=== PATIENT | male | born 1960 | race Caucasian/White ===

== ENCOUNTER 2017-03-10 14:07 | Emergency (ER) | payer OTHER ==
[~2017-03-10] VITALS: Ht 177.8 cm; Wt 72.0 kg
[~2017-03-10 14:07] MED LIST: ATARAX,VISTARIL25 MG PO; AUGMENTIN875 MG PO; AZELASTINE137 MCG/0. BOTH NARES; DIGOX250 MCG PO; DIGOXIN250 MCG PO; LEVOFLOXACIN750 MG PO; LOPRESSOR50 MG PO; LORATADINE10 M2 PO; METOPROLOL TART50 MG PO; NASONEX17 GM BOTH NARES; OMEPRAZOLE20 MG PO; OXYCODONE HCL10 MG PO; OXYCONTIN10 MG PO; OXYCONTIN15 MG PO; PATADAY2.5 ML BOTH EYES; STOOL SOFTENER100 MG PO; TIZANIDINE HCL4 MG PO; XARELTO20 MG PO
[2017-03-10 14:17] VITALS: BP 121/73
== END 2017-03-10 16:03 | disposition left against medical advice (07) ==
LOC: EME 14:07
DX: S61.012A Laceration without foreign body of left thumb without damage to nail, initial encounter (principal); W26.0XXA Contact with knife, initial encounter; Z53.21 Procedure and treatment not carried out due to patient leaving prior to being seen by health care provider